=== PATIENT | female | born 1995 | race Caucasian/White ===

== ENCOUNTER 2018-04-13 11:49 | Emergency (ER) | payer SELFPAY ==
--- NOTE | 2018-04-13 13:13 | RAD ---
PA AND LATERAL CHEST: Date: 04/13/18 INDICATION: Rule out PE. COMPARISON: Prior exam dated 11/11/16. FINDINGS: Lungs are clear. Cardiomediastinal silhouette is within normal limits. No acute osseous abnormality i s evident. IMPRESSION: No acute cardiopulmonary abnormality. POS: [facility]
--- NOTE | 2018-04-13 13:16 | ULT ---
RIGHT LOWER EXTREMITY DOPPLER VENOUS ULTRASOUND: Date: 04/13/18 INDICATION: Right lower extremity edema. TECHNIQUE: Doll scale, color Doppler, and vascular duplex with spectral analysis was performed of the deep venou s structures of the right lower extremity. The common femoral vein, superficial femoral vein, proxima l greater saphenous vein, proximal greater profunda vein, popliteal, and posterior tibial veins were assessed. FINDINGS: Normal compression, flow, and augmentation was seen within the deep venous structures of the right lo wer extremity. IMPRESSION: No evidence of deep venous thrombosis within the right lower extremity. POS: [facility]
[2018-04-13 13:50] LABS: BHCG - Serum Negative (NEGATIVE); Pregs Control Background? CLEAR/WHITE (CLR/WHITE); Pregs Control Bar Appear? YES (CONTROL BAR)
[2018-04-13 13:54] LABS: Lymphocytes 26 % (21-51); MDiff Complete? YES; Mean Corpuscular HGB CONC 34.3 g/dL (32.0-36.0); Mean Corpuscular Hemoglobin 28.2 pg (27.0-31.0); Mean Corpuscular Volume 82.2 fL (78.0-98.0); Mean Platelet Volume 6.6 fL (7.4-10.4); Monocytes 4 % (0-10); Neutrophil 70 % (42-75); PLT Morphology Comment Appears Adequate; Platelet Count 423 thou/uL (130-400); RBC Distribution Width 10.7 % (11.5-14.5); Red Blood Cell (RBC) Count 4.96 mill/uL (4.20-5.40); White Blood Cell (WBC) Count 9.3 thou/uL (4.8-10.8)
[2018-04-13 13:58] LABS: ALT (SGPT) 9 U/L (8-55); Albumin 3.9 g/dL (3.5-5.0); Alkaline Phosphatase 80 U/L (40-150); Anion Gap 15 mmol/L (10-20); BUN (Urea Nitrogen) 8 mg/dL (7.0-18.7); Bilirubin, Total 0.6 mg/dL (0.2-1.2); Calc. Creatinine Clearance 0 mL/min (70-130); Calcium 9.7 mg/dL (7.8-10.44); Carbon Dioxide 19 mmol/L (22-29); Chloride 108 mmol/L (98-107); Estimated GFR-MDRD 88; Globulin 3.8 g/dL (2.4-3.5); Glucose 87 mg/dL (70-105); Potassium 4.6 mmol/L (3.5-5.1); Protein, Total 7.7 g/dL (6.0-8.3); Sodium 137 mmol/L (136-145)
[2018-04-13 14:00] LABS: AST (SGOT) 19 U/L (5-34)
--- NOTE | 2018-04-13 15:30 | CT ---
CT ARTERIOGRAM CHEST WITH IV CONTRAST AND 3D MIP IMAGING: HISTORY: Dyspnea. Chest pain. FINDINGS: Cylindrical filling defect is present within the right lower lobe and right middle lobe pulmonary art eries without complete occlusion. There is good contrast opacification of the aortic arch with pancho l branching of the great vessels. No pleural fluid, pneumothorax, or mediastinal adenopathy. IMPRESSION: Pulmonary embolus right lung. Overall low clot burden. Findings were called to Dr. Lundy in the [place] emergency department at 1430 hours. CODE CR POS: [facility]
== END 2018-04-13 17:05 | disposition home or self-care (01) ==
LOC: SCSER 11:49
DX: I26.99 Other pulmonary embolism without acute cor pulmonale (principal); F41.9 Anxiety disorder, unspecified; Z79.899 Other long term (current) drug therapy
CPT/HCPCS: 71046; 71275; 80053; 84703; 85025; 93005

== ENCOUNTER 2018-08-15 00:39 | Emergency (ER) | payer OTHER ==
[2018-08-15 01:23] LABS: Hemoglobin 14.1 g/dL (12.0-16.0); Mean Corpuscular HGB CONC 33.8 g/dL (32.0-36.0); Mean Corpuscular Hemoglobin 28.7 pg (27.0-31.0); Mean Corpuscular Volume 84.8 fL (78.0-98.0); Mean Platelet Volume 6.6 fL (7.4-10.4); Platelet Count 369 thou/uL (130-400); RBC Distribution Width 11.5 % (11.5-14.5); Red Blood Cell (RBC) Count 4.91 mill/uL (4.20-5.40); White Blood Cell (WBC) Count 9.8 thou/uL (4.8-10.8)
[2018-08-15 01:29] LABS: BHCG - Serum Negative (NEGATIVE); Band 1 % (5-11); Eosinophils 2 % (0-10); Lymphocytes 27 % (21-51); MDiff Complete? YES; Monocytes 4 % (0-10); Neutrophil 65 % (42-75); Pregs Control Background? CLEAR/WHITE (CLR/WHITE); Pregs Control Bar Appear? YES (CONTROL BAR)
[2018-08-15 01:48] LABS: ALT (SGPT) 12 U/L (8-55); AST (SGOT) 18 U/L (5-34); Albumin 4.3 g/dL (3.5-5.0); Alkaline Phosphatase 82 U/L (40-150); Anion Gap 13 mmol/L (10-20); BUN (Urea Nitrogen) 11 mg/dL (7.0-18.7); Bilirubin, Total 0.5 mg/dL (0.2-1.2); CKMB 0.5 ng/mL (0-6.6); Calc. Creatinine Clearance 0 mL/min (70-130); Calcium 9.2 mg/dL (7.8-10.44); Carbon Dioxide 23 mmol/L (22-29); Chloride 108 mmol/L (98-107); Estimated GFR-MDRD 68; Globulin 3.1 g/dL (2.4-3.5); Glucose 92 mg/dL (70-105); Lipase 26 U/L (8-78); Potassium 3.8 mmol/L (3.5-5.1); Protein, Total 7.4 g/dL (6.0-8.3); Sodium 140 mmol/L (136-145); Troponin I Less than 0.010 ng/mL (< 0.028)
--- NOTE | 2018-08-15 07:59 | CT ---
PRELIMINARY REPORT/[facility]/EMERGENTY AFTER-HOURS PROCEDURE CT Angiography Chest With Intravenous Contrast EXAM DATE/TIME: 08/15/2018 1:51 AM CLINICAL HISTORY: 23 years old, female; Pain; Chest pain; Patient HX: Patient reports she had sudden onset of left ante rior inferior sharp cp and right calf and quad muscle pain, both at 0900 today. Constant ever since. She has had these same symptoms before, when she was diagnosed with a dvt and pe in march 2018. She has been on eliquis ever since then, and reports she is still taking it as directed. She dumont d a workup for her previous clots and was found to have factor v leiden, and she was also on wisam at t hat time. She no longer takes any ocp or other hormones. She doesn't smoke. She denies any leg injury , immobilization, or other risk factors for pe/dvt. She reports she does feel a little SOB. She denie s any nausea, diaphoresis, palpitations, syncope, fever, cough, or pain anywhere else. She denies any other symptoms, complaints, or problems. ; Additional info: HX: Pe TECHNIQUE: Axial computed tomographic angiography images of the chest with intravenous contrast using CT angiogr aphy protocol. Coronal reformatted images were created and reviewed. MIP reconstructed images were created and reviewed. CONTRAST: 85 ml of [id number] administered intravenously. COMPARISON: No relevant prior studies available. FINDINGS: Pulmonary arteries: Normal. No pulmonary emboli. Aorta: Normal. No aortic aneurysm. No aortic dissection. Lungs: Lungs are clear aside from minimal dependent atelectasis. Pleural space: Normal. No pneumothorax. No pleural effusion. Heart: Normal. No cardiomegaly. No pericardial effusion. Mediastinum: Esophagus is unremarkable. Normal residual thymus gland. Bones/joints: Unremarkable. No acute fracture. Soft tissues: Unremarkable. Lymph nodes: Unremarkable. No enlarged lymph nodes. IMPRESSION: No acute findings. Thank you for allowing us to participate in the care of your patient. Dictated and Authenticated by: Chong Jensen MD 08/15/2018 2:36 AM Central Time ([place] & [place]) FINAL REPORT CT PULMONARY ANGIOGRAM WITH IV CONTRAST AND 3D POST PROCESSING: I agree with the preliminary report given by Dr. Jensen of [facility]. POS: [facility]
--- NOTE | 2018-08-15 08:01 | ULT ---
PRELIMINARY REPORT/[facility]/EMERGENTY AFTER-HOURS PROCEDURE US Bilateral Duplex Lower Extremity Veins EXAM DATE/TIME: 08/15/2018 1:30 AM CLINICAL HISTORY: 23 years old, female; Pain; Other: RT calf pain; Additional info: HX: Pe TECHNIQUE: Real-time duplex ultrasound of the Bilateral Lower Extremities with 2-D mina scale, color Doppler tyson w and spectral waveform analysis. Complete exam focused on the bilateral lower extremity veins. COMPARISON: No relevant prior studies available. FINDINGS: Right deep veins: Unremarkable. The common femoral, femoral and popliteal veins are patent without th rombus. Normal compressibility, augmentation response and Doppler waveforms. Right superficial veins: Saphenofemoral junction is patent without thrombus. Left deep veins: Unremarkable. The common femoral, femoral and popliteal veins are patent without thr ombus. Normal compressibility, augmentation response and Doppler waveforms. Left superficial veins: Saphenofemoral junction is patent without thrombus. Soft tissues: Unremarkable. IMPRESSION: No acute findings. No evidence of deep vein thrombosis. Thank you for allowing us to participate in the care of your patient. Dictated and Authenticated by: Chong Jensen MD 08/15/2018 2:15 AM Central Time ([place] & [place]) FINAL REPORT BILATERAL VENOUS DOPPLER ULTRASOUND: I agree with the preliminary interpretation. No evidence of DVT. POS: [facility]
== END 2018-08-15 02:55 | disposition home or self-care (01) ==
LOC: SCSER 00:39
DX: R07.9 Chest pain, unspecified (principal); F41.9 Anxiety disorder, unspecified; Z79.01 Long term (current) use of anticoagulants; Z79.899 Other long term (current) drug therapy
CPT/HCPCS: 71275; 80053; 82553; 83690; 84484; 84703; 85025; 93005; 93970

== ENCOUNTER 2019-12-10 16:27 | Outpatient (CLI) | payer OTHER ==
--- NOTE | 2019-12-10 16:49 | RAD ---
XR Finger(s) Rt Min 2 View HISTORY: Injury, right thumb pain FINDINGS: No fracture or dislocation is identified.
--- NOTE | 2019-12-10 16:49 | RAD ---
RIGHT WRIST 3 VIEWS: HISTORY: Right wrist pain, injury FINDINGS: No acute fracture or dislocation is identified. If symptoms do not improve, a follow-up exam should be obtained in 7-10 days.
== END 2019-12-10 16:28 | disposition home or self-care (01) ==
LOC: BICRAD 16:27
PROVIDERS: ATTEND Internal Medicine
DX: M25.531 Pain in right wrist (principal); M79.644 Pain in right finger(s)

== ENCOUNTER 2020-01-15 11:40 | Outpatient (CLI) | payer OTHER ==
--- NOTE | 2020-01-15 12:16 | RAD ---
RIGHT TIBIA AND FIBULA 2 VIEWS: Date: 01/15/2020 HISTORY: Injury. COMPARISON: None. FINDINGS: No acute fracture or malalignment. Mild soft tissue swelling. IMPRESSION: No acute osseous abnormality. POS: [facility]
== END 2020-01-15 11:41 | disposition home or self-care (01) ==
LOC: BICRAD 11:40
PROVIDERS: ATTEND Family Medicine
DX: S80.11XA Contusion of right lower leg, initial encounter (principal)